=== PATIENT | female | born 1970 | race Caucasian/White ===

== ENCOUNTER → 2018-02-12 | Outpatient (CLI) | payer BC ==
[~2018-02-12] MED LIST: CIPROFLOXACIN500 MG PO; TRAMADOL HCL50 MG PO
== END | disposition home or self-care (01) ==
LOC: MAMMO 08:16
DX: Z12.31 Encounter for screening mammogram for malignant neoplasm of breast (principal)

== ENCOUNTER 2023-05-28 11:04 | Inpatient (IN) | payer BC ==
[~2023-05-28] VITALS: Ht 152.4 cm; Wt 57.6 kg
[2023-05-28] VITALS (10 sets, daily range): BP systolic 70–170; BP diastolic 42–98
[2023-05-28 12:42] LABS: HEMATOCRIT 45.4 % (37.0-47.0); MEAN CELL VOLUME 94.2 fl (81.0-99.0); MEAN CORPUSCULAR HGB 30.9 pg (27.0-31.0); MEAN CORPUSCULAR HGB CONC 32.8 g/dl (33.0-37.0); MEAN PLATELET VOLUME 11.7 fl (9.6-12.3); PLATELET COUNT AUTOMATED 179 10*3/uL (130-400); RED BLOOD COUNT 4.82 10*6/uL (4.10-5.10); RED CELL DISTRI WIDTH 12.4 % (0-14.5); WHITE BLOOD COUNT 8.9 10*3/uL (4.8-10.8)
[2023-05-28 12:44] LABS: MANUAL DIFF REFLEX YES
[2023-05-28 13:01] LABS: POTASSIUM 3.6 mmol/L (3.4-5.1)
[2023-05-28 13:07] LABS: PLATELET SUFFICIENCY NORMAL (NORMAL); TOTAL CELLS COUNTED 100 #CELLS
[2023-05-28 13:08] LABS: BURR CELLS FEW
[2023-05-28 21:54] LABS: ABG BASE EXCESS -8.8 mmol/L (-2.0-2.0); ARTERIAL BLOOD GAS PH 7.216 (7.35-7.45)
[2023-05-28 21:58] LABS: POTASSIUM 2.9 mmol/L (3.4-5.1)
[2023-05-29] VITALS: BP 104/74
== END 2023-05-28 23:57 | disposition short-term general hospital (02) | DRG 871 ==
LOC: ED 11:04 → EDHOLD 13:19
PROVIDERS: Student in an Organized Health Care Education/Training Program; ADMIT Internal Medicine; ATTEND Internal Medicine
PROC: 5A1935Z Respiratory Ventilation, Less than 24 Consecutive Hours (ICD-10-PCS; principal; 2023-05-28)
PROC: 0BH17EZ Insertion of Endotracheal Airway into Trachea, Via Natural or Artificial Opening (ICD-10-PCS; 2023-05-28)
DX: A41.9 Sepsis, unspecified organism (principal); J18.9 Pneumonia, unspecified organism; J96.00 Acute respiratory failure, unspecified whether with hypoxia or hypercapnia; J96.01 Acute respiratory failure with hypoxia; N17.0 Acute kidney failure with tubular necrosis; R65.21 Severe sepsis with septic shock; E87.20 Acidosis, unspecified; E87.1 Hypo-osmolality and hyponatremia; I76 Septic arterial embolism; R04.2 Hemoptysis; J98.4 Other disorders of lung; R73.9 Hyperglycemia, unspecified; E87.8 Other disorders of electrolyte and fluid balance, not elsewhere classified; Z20.822 Contact with and (suspected) exposure to COVID-19; F10.90 Alcohol use, unspecified, uncomplicated; Z98.891 History of uterine scar from previous surgery; Z87.891 Personal history of nicotine dependence